=== PATIENT | female | born 1945 | race Two or more races ===

== ENCOUNTER → 2017-11-12 | Outpatient (CLI) | payer MEDICARE, MEDICAID | END | disposition home or self-care (01) | LOC: HKI 09:25 | DX: M17.0 Bilateral primary osteoarthritis of knee (principal); M51.36 Other intervertebral disc degeneration, lumbar region; I10 Essential (primary) hypertension; E11.8 Type 2 diabetes mellitus with unspecified complications; E66.9 Obesity, unspecified; Z96.651 Presence of right artificial knee joint | CPT/HCPCS: 20610; 73564-50 ==

== ENCOUNTER → 2018-10-06 | Outpatient (CLI) | payer MEDICARE, OTHER, MEDICAID | END | disposition home or self-care (01) | LOC: HKI 10:40 | DX: M54.30 Sciatica, unspecified side (principal); M54.16 Radiculopathy, lumbar region; M77.9 Enthesopathy, unspecified | CPT/HCPCS: 73502 ==